=== PATIENT | female | born 1965 | race Caucasian/White ===

== ENCOUNTER → 2017-02-21 | Outpatient (CLI) | payer OTHER ==
[~2017-02-21] MED LIST: LEVAQUIN 5500 MG/TA1 PO; LORTAB 5/500 501 TAB PO; NAPROSYN PO; NO HOME MEDICATIONS; NORCO 325 MG-51 TAB PO; SERTRALINE; [UNRECOGNIZED DRUG - OTHER]
[2017-02-21 10:58] LABS: ADJUSTED CALCIUM 9.5 mg/dL (8.4-10.2); BILIRUBIN,TOTAL 0.8 mg/dL (0.0-1.0); CALCIUM 9.5 mg/dL (8.4-10.2); CREATININE, serum 0.79 mg/dL (0.52-1.25); POTASSIUM 4.4 mmol/L (3.4-5.0); TOTAL PROTEIN 7.1 gm/dL (6.4-8.2)
[2017-02-21 12:04] LABS: THYROID STIMULATING HORMONE 1.35 uIU/mL (0.465-4.680)
== END ==
LOC: ZLAB.FHCC 10:14 → COL.LAB 10:14
PROVIDERS: Internal Medicine
DX: Z02.89 Encounter for other administrative examinations (principal)